=== PATIENT | male | born 1990 | race African-American/Black ===

== ENCOUNTER 2018-04-10 10:43 | Emergency (ER) | payer MEDICAID, OTHER ==
[~2018-04-10] VITALS: Ht 190.5 cm; Wt 82.0 kg
[2018-04-10 10:50] VITALS: BP 116/80
[2018-04-10] MEDS ORDERED: ACETAMINOPHEN 500MG TABLET PO ONE (11:00)
[2018-04-10] MEDS ORDERED: FLUORESCEIN SODIUM 1MG/STRIP RIGHTEYE ONE (12:15)
[2018-04-10] MEDS ORDERED: TETRACAINE 0.5% OPHTH DROPS 4ML RIGHTEYE ONE (12:15)
== END 2018-04-10 15:32 | disposition home or self-care (01) ==
LOC: ER 10:56
DX: S00.11XA Contusion of right eyelid and periocular area, initial encounter (principal); W21.05XA Struck by basketball, initial encounter; Y93.67 Activity, basketball; Y92.89 Other specified places as the place of occurrence of the external cause; J32.0 Chronic maxillary sinusitis
CPT/HCPCS: 70486; 99284; Z7610

== ENCOUNTER 2019-03-22 13:57 | Emergency (ER) | payer MEDICAID ==
[~2019-03-22] VITALS: Ht 188 cm; Wt 87.0 kg
[2019-03-22] MEDS ORDERED: AMOXICILLIN 500 MG CAPSULE PO ONE (15:30)
[2019-03-22] MEDS ORDERED: PREDNISONE 20MG TABLET PO ONE (15:30)
[2019-03-22] MEDS ORDERED: ACYCLOVIR 400 MG TABLET PO ONE (15:30)
[2019-03-22 16:47] VITALS: BP 129/69
== END 2019-03-22 16:48 | disposition home or self-care (01) ==
LOC: ER 13:57
DX: G51.0 Bell's palsy (principal); K04.7 Periapical abscess without sinus; F12.10 Cannabis abuse, uncomplicated
CPT/HCPCS: 99284; J7512

== ENCOUNTER 2019-12-16 04:10 | Emergency (ER) | payer MEDICAID ==
[~2019-12-16] VITALS: Ht 188 cm; Wt 96.0 kg
[2019-12-16] MEDS ORDERED: IBUPROFEN 800MG TABLET PO ONE (04:45)
[2019-12-16 05:14] VITALS: BP 145/73
== END 2019-12-16 07:58 | disposition home or self-care (01) ==
LOC: ER 04:59
DX: S69.82XA Other specified injuries of left wrist, hand and finger(s), initial encounter (principal); M79.642 Pain in left hand; W01.0XXA Fall on same level from slipping, tripping and stumbling without subsequent striking against object, initial encounter; Y93.9 Activity, unspecified; Y92.9 Unspecified place or not applicable
CPT/HCPCS: 29125; 73110; 73130; 99283; Z7610